=== PATIENT | male | born 1985 | race African-American/Black ===

== ENCOUNTER 2022-10-02 11:40 | Inpatient (IN) | payer OTHER ==
[~2022-10-02] VITALS: Ht 193 cm; Wt 143.0 kg
[2022-10-02 12:09] LABS: Hematocrit 45.1 % (37.0-53.0); Hemoglobin 15.5 g/dL (13.5-17.5); Mean Corpuscular HGB 28.7 pg (26.0-34.0); Mean Corpuscular HGB Conc 34.4 g/dL (31.5-36.5); Mean Corpuscular Volume 83 fL (80-100); Mean Platelet Volume 11.8 fL (9.1-12.4); Platelet Count 350 K/mm3 (150-400); RDW Coefficient Variation 12.9 % (11.7-14.2); RDW Standard Deviation 38.6 fL (35.1-46.3); Red Blood Cell Count 5.41 M/mm3 (4.30-5.90); White Blood Cell Count 21.59 K/mm3 (4.00-11.30)
[2022-10-02 12:34] LABS: BAND PERCENT MAN 2 % (0-8); BASOPHILS PERCENT MAN 0 % (0-2); EOSINOPHILS PERCENT MAN 0 % (0-6); LYMPHOCYTES ABSOLUTE MAN 0.86 K/mm3 (0.84-5.20); LYMPHOCYTES PERCENT MAN 4 % (21-46); MONOCYTES ABSOLUTE MAN 1.29 K/mm3 (0.16-1.47); MONOCYTES PERCENT MAN 6 % (4-13); NEUTROPHILS ABSOLUTE MAN 19.43 K/mm3 (1.96-9.15); SEG NEUTROPHILS PERCENT MAN 88 % (41-73); TOTAL CELLS COUNTED 100
[2022-10-02 12:35] LABS: Albumin, Blood 3.4 g/dL (3.4-5.0); Albumin/Globulin Ratio 0.8 (0.8-1.8); Bilirubin, Total 0.9 mg/dL (0.1-1.0); Bun/Creatinine Ratio 71.1 (12.0-20.0); Calcium, Blood 8.7 mg/dL (8.5-10.1); Creatinine, Blood 0.93 mg/dL (0.60-1.20); Globulin, Blood 4.5 g/dL (2.2-4.0); Potassium, Blood 5.3 mmol/L (3.5-5.5); Total Protein, Blood 7.9 g/dL (6.4-8.2)
[2022-10-02 12:49] LABS: Creatine Kinase MB 77.4 ng/mL (0.0-3.6)
[2022-10-02 13:37] LABS: Creatine Kinase MB Index 2.1 (0.0-4.0)
--- NOTE | 2022-10-03 03:52 | NUR ---
SHIFT MOSTLY UNREMARKABLE. PATIENT DOES NOT USE CALL LIGHT APPROPRIATELY AND IMPULSIVELY GETS OUT OF BED TO USE BATHROOM. BED ALARM ACTIVE. PATIENT COMPLAINS OF FREQUENT 8/10 PAIN THAT IS ONLY PARTIALLY MANAGED ON CURRENT MEDICATION REGIMEN. ENCOURAGED TO USE CALL LIGHT WHEN HE NEEDS ASSISTANCE. PATTIENT IS CONFIDENTIAL PATIENT AND PASSWORD IS "[place]". CALL LIGHT LEFT WITHIN REACH.
[2022-10-03 05:08] LABS: Hematocrit 40.6 % (37.0-53.0); Hemoglobin 13.6 g/dL (13.5-17.5); Mean Corpuscular HGB 28.1 pg (26.0-34.0); Mean Corpuscular HGB Conc 33.5 g/dL (31.5-36.5); Mean Corpuscular Volume 84 fL (80-100); Mean Platelet Volume 11.6 fL (9.1-12.4); Platelet Count 302 K/mm3 (150-400); RDW Coefficient Variation 12.8 % (11.7-14.2); RDW Standard Deviation 38.7 fL (35.1-46.3); Red Blood Cell Count 4.84 M/mm3 (4.30-5.90); White Blood Cell Count 14.59 K/mm3 (4.00-11.30)
[2022-10-03 07:02] LABS: Albumin, Blood 2.9 g/dL (3.4-5.0); Albumin/Globulin Ratio 0.8 (0.8-1.8); Bilirubin, Total 0.6 mg/dL (0.1-1.0); Bun/Creatinine Ratio 42.9 (12.0-20.0); Calcium, Blood 8.1 mg/dL (8.5-10.1); Creatinine, Blood 0.77 mg/dL (0.60-1.20); Globulin, Blood 3.8 g/dL (2.2-4.0); Magnesium, Blood 2.7 mg/dL (1.6-2.4); Thyroid Stimulating Hormone 0.526 uIU/mL (0.360-4.800); Total Protein, Blood 6.7 g/dL (6.4-8.2)
[2022-10-03 07:17] LABS: Creatine Kinase MB 22.1 ng/mL (0.0-3.6); Creatine Kinase MB Index 1.3 (0.0-4.0)
--- NOTE | 2022-10-03 16:55 | NUR ---
SHIFT SUMMARY: PT ALERT AND ORIENTED X3-4. PT HAS BEEN VERY FATIGUED THIS SHIFT. NS RUNNING @100. PT HAD LARGE, INCONTINENT BM TODAY. YOKE PRESSERHermila JAMES GOT PT INTO SHOWER. PT IN 04/03 PAIN TODAY BUT DENIED PAIN MEDICATION. PLAN IS FOR PT TO D/C WITH WHO WILL DRIVE HIM BACK TO [facility]. PT CHANGED TO [facility] BLOOD SUGARS. CALL LIGHT IN REACH. BED IN LOWEST POSITION. WILL CONTINUE TO MONITOR.
--- NOTE | 2022-10-04 03:56 | NUR ---
Patient resting in bed at this time.
[2022-10-04 06:04] LABS: BASOPHILS PERCENT AUTO 1 % (0-2); EOSINOPHILS ABSOLUTE AUTO 0.22 K/mm3 (0.00-0.68); EOSINOPHILS PERCENT AUTO 2 % (0-6); Hemoglobin 12.9 g/dL (13.5-17.5); IMMATURE GRAN ABSOLUTE AUTO 0.45 K/mm3 (0.00-0.10); IMMATURE GRAN PERCENT AUTO 3 % (0-1); LYMPHOCYTES ABSOLUTE AUTO 2.89 K/mm3 (0.84-5.20); LYMPHOCYTES PERCENT AUTO 21 % (21-46); MONOCYTES ABSOLUTE AUTO 1.44 K/mm3 (0.16-1.47); MONOCYTES PERCENT AUTO 10 % (4-13); Mean Corpuscular HGB 27.7 pg (26.0-34.0); Mean Corpuscular HGB Conc 32.3 g/dL (31.5-36.5); Mean Corpuscular Volume 86 fL (80-100); NEUTROPHILS ABSOLUTE AUTO 8.75 K/mm3 (1.96-9.15); NEUTROPHILS PERCENT AUTO 63 % (41-73); Platelet Count 298 K/mm3 (150-400); RDW Coefficient Variation 13.2 % (11.7-14.2); RDW Standard Deviation 40.4 fL (35.1-46.3); Red Blood Cell Count 4.65 M/mm3 (4.30-5.90); White Blood Cell Count 13.85 K/mm3 (4.00-11.30)
[2022-10-04 08:52] LABS: Albumin, Blood 2.5 g/dL (3.4-5.0); Albumin/Globulin Ratio 0.6 (0.8-1.8); Bilirubin, Total 0.3 mg/dL (0.1-1.0); Bun/Creatinine Ratio 15.6 (12.0-20.0); Calcium, Blood 8.8 mg/dL (8.5-10.1); Creatinine, Blood 0.64 mg/dL (0.60-1.20); Globulin, Blood 3.9 g/dL (2.2-4.0); Potassium, Blood 3.6 mmol/L (3.5-5.5); Total Protein, Blood 6.4 g/dL (6.4-8.2)
[2022-10-04 12:39] LABS: U Amphetamine Screen Not Detected; U Barbituate Screen Not Detected; U Benzodiazapine Screen Not Detected; U Buprenorphine Screen Not Detected; U Cannabinoids Screen Not Detected; U Cocaine Screen Not Detected; U Methadone Screen Not Detected; U Methamphetamine Screen Not Detected; U Opiates Screen Not Detected; U Oxycodone Screen Not Detected; U Phencyclidine Screen Not Detected; U Propoxyphene Screen Not Detected
--- NOTE | 2022-10-04 17:47 | NUR ---
SHIFT SUMMARY: PT ALERT AND ORIENTED X4. PT WAS PLEASANT AND COOPERATIVE WITH ALL CARE. PT C/O PAIN ONCE THIS SHIFT. GAVE PRN TORADOL AND HAS NOT HAD ISSUES WITH PAIN SINCE. PT NO LONGER ON CONTINUOUS NS. PT C/O TENDERNESS IN RAC IV SITE. EXPLAINED TO PT THAT THE IV IS STILL NEEDED BUT COULD PULL IT AND START A NEW ONE. PT DECLINED NEW IV OFFER. PT WAS A 1-2 PERSON ASSIST TO BATHROOM TODAY. PT EVAL WILL BE DONE TOMORROW. CALLED DR. GRIMM FOR A CONSULT ON PT FEET. DR GRIMM ARRIVED AT 1750 TO GET CULTURES AND SENT TO LAB. CALL LIGHT IN REACH. WILL CONTINUE TO MONITOR.
--- NOTE | 2022-10-05 04:36 | NUR ---
FAT PURIFICATION WORKER SUMMARY NO ACUTE EVENTS. PT A/OX4. PT REPORTS PAIN AT REST IS 3-4 CONSISTANTLY AND INCREASED WITH MOVEMENT IN BED; PT ON BEDREST T/O THE NIGHT. PT RCVD SCHEDULED PAIN MEDS AND 1X DOSE OF PRN PO PAIN MED. PT REPORTS NUMBNESS IN LOWER RT FOOT. ON CONT PULSE OX; SOME BRIEF EPISODES OF DROPPING DOWN TO MID-UPPER 80'S. ABLE TO MAKE NEEDS KNOWN; CALL LIGHT IN REACH.
[2022-10-05 05:28] LABS: BASOPHILS ABSOLUTE AUTO 0.21 K/mm3 (0.00-0.23); BASOPHILS PERCENT AUTO 1 % (0-2); EOSINOPHILS ABSOLUTE AUTO 0.62 K/mm3 (0.00-0.68); EOSINOPHILS PERCENT AUTO 4 % (0-6); IMMATURE GRAN ABSOLUTE AUTO 0.77 K/mm3 (0.00-0.10); IMMATURE GRAN PERCENT AUTO 5 % (0-1); LYMPHOCYTES ABSOLUTE AUTO 3.46 K/mm3 (0.84-5.20); LYMPHOCYTES PERCENT AUTO 20 % (21-46); MONOCYTES ABSOLUTE AUTO 1.44 K/mm3 (0.16-1.47); MONOCYTES PERCENT AUTO 8 % (4-13); Mean Corpuscular HGB 28.1 pg (26.0-34.0); Mean Corpuscular HGB Conc 32.5 g/dL (31.5-36.5); Mean Corpuscular Volume 87 fL (80-100); Mean Platelet Volume 11.4 fL (9.1-12.4); NEUTROPHILS ABSOLUTE AUTO 10.62 K/mm3 (1.96-9.15); NEUTROPHILS PERCENT AUTO 62 % (41-73); NRBC ABSOLUTE 0.02 K/mm3 (0.00-0.02); NRBC Auto 0.1 /100 WBC (0.0-0.2); Platelet Count 335 K/mm3 (150-400); RDW Coefficient Variation 13.2 % (11.7-14.2); RDW Standard Deviation 40.6 fL (35.1-46.3); Red Blood Cell Count 4.62 M/mm3 (4.30-5.90); White Blood Cell Count 17.12 K/mm3 (4.00-11.30)
[2022-10-05 05:45] LABS: Bun/Creatinine Ratio 13.5 (12.0-20.0); Calcium, Blood 8.7 mg/dL (8.5-10.1); Creatinine, Blood 0.67 mg/dL (0.60-1.20); Potassium, Blood 3.7 mmol/L (3.5-5.5)
--- NOTE | 2022-10-05 06:27 | NUR ---
CLINICAL SALES CONSULTANT SUMMARY NO ACUTE CHANGES. PT A/OX4. PLEASANT AND COOPERATIVE WITH CARE. PT AWAKE INTERMITTANTLY T/O THE NIGHT. TALKED SOME ABOUT HIS FAMILY AND DESIRE TO RELOCATE AWAY FROM [place]. PT STATES IS ON ROUTE TO VISIT. PT BLE'S ARE SWOLLEN AND PAINFUL. WOUNDS OPEN, NO DRAINAGE. PT C/O OF NUMBNESS IN BILATERAL HANDS. HS BLOOD SUGAR 174. PT DENIES BEING AWARE OF POSSIBLE DMT2 DX BUT STATES IT RUNS IN HIS FAMILY. LEFT AC IV DC'D DUE TO TENDERNESS; NEW RT FOREARM IV 20G--SALINE LOCKED. PT HAS BEEN MOVING INDEPENDENTLY FROM BED TO CHAIR AND TO THE BATHROOM. PT ABLE TO MAKE NEEDS KNOWN. CALL LIGHT ACCESSIBLE.
--- NOTE | 2022-10-05 18:13 | NUR ---
Received Report from ongoing nurse. Pt resting in chair. Family came in from [place] and at bedside. Pt family seem to have a lot of questions about patient plan of care. Pt has some complaints with his hands and feet. Patient is having numbness and tingling. Right forearm IV DC and new IV placed.
--- NOTE | 2022-10-06 06:10 | NUR ---
POURER SUMMARY: A&Ox4. PLEASANT AND COOPERATIVE WITH CARE. CALLS APPROPRIATELY AND COMMUNICATES NEEDS SOMETIMES, BUT IS NOT FORWARD ABOUT ASKIN FOR PAIN MEDICATION AND ONLY TOOK IT AFTER BEING OFFERED. ENCOURAGED TO ASK WHEN NEEDED HE CAN HAVE Q4H; DISCUSSED RISKS OF PAIN INCREASING STRESS CAUSING ELEVATED BLOOD SUGARS WHICH CAN INHIBIT HEALING. AT BEDSIDE. BILAT FEET EDEMATOUS AND DARK IN COLOR. MEDICATED PRN PAIN. PT ASKED IF THERE ARE RESOURCES IN THE COMMUNITY THEY CAN BE CONNECTED WITH THEY ARE TRYING TO MOVE THEIR FAMILY DOWN HERE TO RAISE THEIR SIX CHILDREN IN A SMALLER COMMUNITY. WILL REQUEST ORDER FOR STONE SPREADER OPERATOR FROM PROVIDER; THIS MAY BE DIFFICULT CONSIDERING PT [facility]. NO ACUTE OVERNIGHT EVENTS. WILL REPORT TO [facility]ANDAR [facility].
--- NOTE | 2022-10-06 18:03 | NUR ---
Received report from ongoing nurse. Pt resting comfortably in bed. at bedside helping. DIABETIC EDUCATION ON DIETING FROM MANAGER STUDY TODAY. Physical therapy at bedside, pt given a walker for assistance. Pt in good spirits after speaking with physician.
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
[2022-10-07] MEDS ORDERED: Acetaminophen325 M1 PO (10:03)
[2022-10-07] MEDS ORDERED: GLIP5 PO (10:10)
[2022-10-07] MEDS ORDERED: VISBIOME 112.51 EACH PO (10:11)
[2022-10-07] MEDS ORDERED: METF500 PO (10:13)
[2022-10-07] MEDS ORDERED: CEPH500 PO (10:14)
--- NOTE | 2022-10-07 15:49 | NUR ---
Received report from ongoing nurse. Pt resting comfortably in bed. Physician at bedside pt will be discharge and pt family will be place in motel with transportation. Discharge instructions given and at bedside. Taxi will arrive at 1330.
== END 2022-10-07 15:34 | disposition home or self-care (01) | DRG 602 ==
LOC: ER 11:40 → MEDS 15:41
PROVIDERS: Emergency Medicine; Internal Medicine; Student in an Organized Health Care Education/Training Program; ADMIT Internal Medicine
DX: L03.116 Cellulitis of left lower limb (principal); G92.8 Other toxic encephalopathy; T33.822A Superficial frostbite of left foot, initial encounter; T33.821A Superficial frostbite of right foot, initial encounter; M62.82 Rhabdomyolysis; L02.415 Cutaneous abscess of right lower limb; L02.416 Cutaneous abscess of left lower limb; F17.210 Nicotine dependence, cigarettes, uncomplicated; E86.0 Dehydration; L03.115 Cellulitis of right lower limb; A49.01 Methicillin susceptible Staphylococcus aureus infection, unspecified site; R73.9 Hyperglycemia, unspecified; I10 Essential (primary) hypertension; E66.01 Morbid (severe) obesity due to excess calories; Z68.28 Body mass index [BMI] 28.0-28.9, adult; X31.XXXA Exposure to excessive natural cold, initial encounter
CPT/HCPCS: 36415; 73110; 80048; 80053; 82550; 82553; 82947; 83036; 83735; 84443; 85025; 85027; 87070; 87075; 87077; 87147; 87186; 87205; 96361; 96374; 97110; 97116; 97162; 99285-25; A9270; J0690; J1170; J1650; J1815; J3370; J7030; J7050